=== PATIENT | female | born 1970 | race Caucasian/White ===

== ENCOUNTER 2017-11-01 07:35 | Day surgery (SDC) | payer OTHER ==
[~2017-11-01 07:35] MED LIST: PROPOFOL INJ 200 MG/20 ML VIAL IV ONE
[2017-11-01] MEDS ORDERED: PROPOFOL INJ 200 MG/20 ML VIAL IV ONE (08:59)
[2017-11-01 09:35] VITALS: BP 122/77
--- NOTE | 2017-11-01 12:27 | Operative Report ---
Operative Report DATE OF SURGERY: 11/01/17 Operative Report: The risks, benefits and alternatives of the procedure including risks of bleeding, perforation requiring surgery are explained to the patient in detail and informed consent is obtained. Patient is taken back to the endoscopy suite and placed in the left, lateral decubital position. Timeout was called. Propofol medications administered. A rectal examination is done which did not reveal any masses, tears or fissures. An Olympus videoscope was inserted into the patient's rectum. The scope was then carefully advanced all the way to the cecum. The cecum was identified by the usual anatomical landmarks including the ileocecal valve as well as the appendiceal office. Photodocumentation was obtained. The scope was then sequentially pulled back via the rest segments of the colon including the ascending colon, hepatic flexure, transverse colon, splenic flexure, descending colon and finding to the rectosigmoid portions of the colon. Prep is reasonably good. Intubation of the terminal ileum is done. PREOPERATIVE DIAGNOSIS: Right lower quadrant pain, change in bowel habits POSTOPERATIVE DIAGNOSIS: Mild terminal ileitis status post biopsy rule out Crohn 's disease. Right sidecolon Inflammation status post biopsy rule out lymphocytic, collagenous colitis. Internal hemorrhoids OPERATION: Colonoscopy with biopsy SURGEON: LILLIE BRIDGES ANESTHESIA: LMAC TISSUE REMOVED OR ALTERED: As noted above. COMPLICATIONS: None. ESTIMATED BLOOD LOSS: None. INTRAOPERATIVE FINDINGS: As noted above. PROCEDURE: Patient tolerated procedure well. No immediate postprocedure complications are noted. Patient discharged in good condition. Discharge date 11/01/2017. Discharge diet: Regular. Discharge activity: Regular. 2-3 week follow-up to discuss findings. Patient is instructed to call the office or proceed to the emergency room should there be any further problems or questions. We will wait on pathology.
== END 2017-11-01 09:30 | disposition home or self-care (01) ==
LOC: END 07:35
PROVIDERS: ATTEND Internal Medicine Gastroenterology
PROC: 0DBF8ZX Excision of Right Large Intestine, Via Natural or Artificial Opening Endoscopic, Diagnostic (ICD-10-PCS; 2017-11-01)
PROC: 0DBB8ZX Excision of Ileum, Via Natural or Artificial Opening Endoscopic, Diagnostic (ICD-10-PCS; principal; 2017-11-01 09:00)
DX: K92.1 Melena (principal); K52.9 Noninfective gastroenteritis and colitis, unspecified; K64.8 Other hemorrhoids; J45.909 Unspecified asthma, uncomplicated; K44.9 Diaphragmatic hernia without obstruction or gangrene; Z96.659 Presence of unspecified artificial knee joint; Z79.899 Other long term (current) drug therapy
CPT/HCPCS: 45380; 88305 ×2; J2704; 811

== ENCOUNTER 2018-02-17 04:08 | Emergency (ER) | payer OTHER ==
[2018-02-17 05:24] LABS: ANION GAP 12 (5-19); BLOOD UREA NITROGEN 20 mg/dL (7-20); CALCIUM 7.3 mg/dL (8.4-10.2); CARBON DIOXIDE 32 mmol/L (22-30); CHLORIDE 98 mmol/L (98-107); GLUCOSE 98 mg/dL (75-110); POTASSIUM 4.3 mmol/L (3.6-5.0)
[2018-02-17 06:27] LABS: ALANINE AMINOTRANSFERASE 28 U/L (9-52); ALBUMIN 3.5 g/dL (3.5-5.0); ALKALINE PHOSPHATASE 77 U/L (38-126); ASPARTATE AMINO TRANSFERASE 24 U/L (14-36); BILIRUBIN,DIRECT 0.3 mg/dL (0.0-0.4); BILIRUBIN,TOTAL 0.4 mg/dL (0.2-1.3); TOTAL PROTEIN 6.7 g/dL (6.3-8.2)
[2018-02-17] MEDS ORDERED: CALCIUM GLUCONATE 1000 MG/10 ML INJ IV ONE ×2 (06:46→07:15)
--- NOTE | 2018-02-17 06:57 | ER Document Report ---
ED General - General Chief Complaint: Numbness Stated Complaint: TINGLING IN HANDS/LIPS Time Seen by Provider: 02/17/18 04:44 Mode of Arrival: Ambulatory Information source: Patient Notes: 47-year-old female patient has 2 days post total thyroidectomy presents with complaint of numbness to her bilateral hands and fingertips as well as numbness around her lips. Patient reports that she believes her calcium is low as her surgeon Dr. Castro told her this was a sign to watch for. Patient states she woke up with these symptoms at about 3 AM this morning. Patient reports that while she was in the hospital she was treated with IV calcium for a similar episode. Patient denies any other symptoms. TRAVEL OUTSIDE OF THE [place] IN LAST 30 DAYS: No - Related Data Allergies/Adverse Reactions: shrimp Allergy (Severe, Verified 02/17/18 08:11) Swelling of mouth with large amounts Sulfa (Sulfonamide Antibiotics) Allergy (Severe, Verified 02/17/18 08:11) Blisters in mouth Tuna Allergy (Severe, Uncoded 02/17/18 08:11) N&V Past Medical History - General Information source: Patient - Social History Smoking Status: Never Smoker Chew tobacco use (# tins/day): No Frequency of alcohol use: None Drug Abuse: None Family History: Reviewed & Not Pertinent, CVA Patient has suicidal ideation: No Patient has homicidal ideation: No - Past Medical History Cardiac Medical History: Reports: Hx Hypertension Denies: Hx Coronary Artery Disease, Hx Heart Attack Pulmonary Medical History: Reports: Hx Asthma - No attacks in yrs, Hx Pneumonia - 10/2015 Denies: Hx Bronchitis, Hx COPD Neurological Medical History: Denies: Hx Cerebrovascular Accident, Hx Seizures Renal/ Medical History: Denies: Hx Peritoneal Dialysis Musculoskeltal Medical History: Reports Hx Arthritis - Lt shoulder, Lt elbow Psychiatric Medical History: Reports: Hx Anxiety, Hx Post Traumatic Stress Disorder Past Surgical History: Reports: Hx Abdominal Surgery - exp lap., Hx Section, Hx Hysterectomy, Hx Orthopedic Surgery - knee, foot, Hx Thyroid Surgery - Immunizations Hx Diphtheria, Pertussis, Tetanus Vaccination: Yes - 2012 Review of Systems - Review of Systems Constitutional: See HPI EENT: No symptoms reported Cardiovascular: No symptoms reported Respiratory: No symptoms reported Gastrointestinal: No symptoms reported Genitourinary: No symptoms reported Female Genitourinary: No symptoms reported Musculoskeletal: No symptoms reported Skin: No symptoms reported Hematologic/Lymphatic: No symptoms reported Neurological/Psychological: No symptoms reported Physical Exam - Vital signs Vitals: Temp Pulse Resp BP Pulse Ox 98.8 F 65 22 H 137/81 H 95 02/17/18 04:13 02/17/18 04:13 02/17/18 04:13 02/17/18 04:13 02/17/18 04:13 - Notes Notes: PHYSICAL EXAMINATION: GENERAL: Well-appearing, well-nourished and in no acute distress. HEAD: Atraumatic, normocephalic. EYES: Pupils equal round and reactive to light, extraocular movements intact, conjunctiva are normal. ENT: Nares patent, oropharynx clear without exudates. Moist mucous membranes. Healing surgical incision across the patient's lower neck consistent with recent thyroid surgery (Steri-Strips in place). NECK: Normal range of motion, supple without lymphadenopathy LUNGS: Breath sounds clear to auscultation bilaterally and equal. No wheezes rales or rhonchi. HEART: Regular rate and rhythm without murmurs ABDOMEN: Soft, nontender, nondistended abdomen. No guarding, no rebound. No masses appreciated. Female : deferred Musculoskeletal: Normal range of motion, no pitting or edema. No cyanosis. NEUROLOGICAL: Cranial nerves grossly intact. Normal speech, normal gait. Normal sensory, motor exams PSYCH: Normal mood, normal affect. SKIN: Warm, Dry, normal turgor, no rashes or lesions noted. Course - Re-evaluation Re-evalutation: Patient is to days post total thyroidectomy. Patient has symptoms consistent with hypocalcemia and no other complaints. Patient's calcium level 7.3, albumin 3.5. Will replace patient with 2000 mg calcium gluconate IV and will consult patient's surgeon at [facility], Dr. Castro. Spoke with Dr. Castro, patients surgeon who recommends to give patient another 2 grams of calcium gluconate IV prior to discharge. He would also like patient to increase her calcium 1 g tablets two 4 times daily and increase her Calcitrol 0.5 mcg tablets to 3 times daily. - Vital Signs Vital signs: Temp Pulse Resp BP Pulse Ox 98.5 F 64 18 124/73 94 02/17/18 09:12 02/17/18 09:12 02/17/18 09:12 02/17/18 09:12 02/17/18 09:12 - Laboratory Result Diagrams: 02/17/18 05:00 Laboratory results interpreted by me: 02/17/18 05:00 Carbon Dioxide 32 H Calcium 7.3 L Discharge - Discharge Clinical Impression: Hypocalcemia Condition: Stable Disposition: HOME, SELF-CARE Additional Instructions: Per the recommendations of Dr. Castro. please increase your Calcitrol from twice a day to 3 times per day. Please increase your calcium from 1 gram 3 times daily to 1 gram 4 times per day. Please keep your follow-up appointment tomorrow with Dr. Castro. Referrals: JACEY ARMENDARIZ PA-C [Primary Care Provider] - Follow up as needed LOGAN AN MD [NO LOCAL MD] - Follow up as needed
[2018-02-17 09:16] VITALS: BP 124/73
== END 2018-02-17 09:30 | disposition home or self-care (01) ==
LOC: ER 04:08
DX: E83.51 Hypocalcemia (principal); R20.0 Anesthesia of skin; E89.0 Postprocedural hypothyroidism; Z91.013 Allergy to seafood; Z88.2 Allergy status to sulfonamides; I10 Essential (primary) hypertension; J45.909 Unspecified asthma, uncomplicated
CPT/HCPCS: 99284; 96365; 36415; 84703; 80076; 80048; J0610

== ENCOUNTER 2018-02-18 04:53 | Inpatient (IN) | payer OTHER ==
[2018-02-18] MEDS ORDERED: ONDANSETRON HCL INJ/PF 4 MG/2 ML SDV IV ONE (05:35)
--- NOTE | 2018-02-18 05:35 | ER Document Report ---
ED Medical Screen (RME) - General Chief Complaint: Diarrhea Stated Complaint: diarrhea Time Seen by Provider: 02/18/18 05:30 Notes: 47-year-old female, states that she is status post thyroidectomy 3 days ago at [facility] by Dr. Castro, states that she was seen yesterday and given calcium , she states that she was increased on her calcium dose, she states she was feeling fine until she woke up at about 2 AM, felt like she was tingling over her face and arms, she then had to episodes of loose stools and felt nauseated, she states at that point she decided to come in. She states she feels nauseated at this time. She denies vomiting, abdominal pain, chest pain, shortness of breath, dizziness, fever. She was supposed to see her surgeon in followup today in the office. TRAVEL OUTSIDE OF THE [place] IN LAST 30 DAYS: No - Related Data Allergies/Adverse Reactions: shrimp Allergy (Severe, Verified 02/17/18 08:11) Swelling of mouth with large amounts Sulfa (Sulfonamide Antibiotics) Allergy (Severe, Verified 02/17/18 08:11) Blisters in mouth Tuna Allergy (Severe, Uncoded 02/17/18 08:11) N&V Past Medical History - Past Medical History Cardiac Medical History: Reports: Hx Hypertension Denies: Hx Coronary Artery Disease, Hx Heart Attack Pulmonary Medical History: Reports: Hx Asthma - No attacks in yrs, Hx Pneumonia - 10/2015 Denies: Hx Bronchitis, Hx COPD Neurological Medical History: Denies: Hx Cerebrovascular Accident, Hx Seizures Renal/ Medical History: Denies: Hx Peritoneal Dialysis Musculoskeltal Medical History: Reports Hx Arthritis - Lt shoulder, Lt elbow Psychiatric Medical History: Reports: Hx Anxiety, Hx Post Traumatic Stress Disorder Past Surgical History: Reports: Hx Abdominal Surgery - exp lap., Hx Section, Hx Hysterectomy, Hx Orthopedic Surgery - knee, foot, Hx Thyroid Surgery - Immunizations Hx Diphtheria, Pertussis, Tetanus Vaccination: Yes - 2012 Influenza Administration Date for 06/2017 - 11/2017 Season: 10/07/16 Physical Exam - Vital signs Vitals: Temp Pulse Resp BP Pulse Ox 98.1 F 69 20 146/82 H 97 02/18/18 04:59 02/18/18 04:59 02/18/18 04:59 02/18/18 04:59 02/18/18 04:59 - Cardiovascular Rhythm: Regular. No: Irregularly irregular, Extrasystoles, Tachycardia Heart sounds: Normal auscultation, S1 appreciated, S2 appreciated Murmur: No Normal capillary refill: Yes - Abdominal Inspection: Normal Tenderness: Nontender. No: Tender Course - Re-evaluation Re-evalutation: I have greeted and performed a rapid initial assessment of this patient. A comprehensive ED assessment and evaluation of the patient, analysis of test results and completion of the medical decision making process will be conducted by additional ED providers. - Vital Signs Vital signs: Temp Pulse Resp BP Pulse Ox 98.1 F 69 20 146/82 H 97 02/18/18 04:59 02/18/18 04:59 02/18/18 04:59 02/18/18 04:59 02/18/18 04:59 Doctor's Discharge - Discharge Referrals: JACEY ARMENDARIZ PA-C [Primary Care Provider] - Follow up as needed
[2018-02-18 06:22] LABS: ABSOLUTE EOSINOPHILS # (AUTO) 0.1 10^3/uL (0.0-0.6); ABSOLUTE LYMPHOCYTES (AUTO) 0.9 10^3/uL (0.5-4.7); ABSOLUTE MONOCYTES (AUTO) 0.6 10^3/uL (0.1-1.4); ABSOLUTE NEUT (AUTO) 7.9 10^3/uL (1.7-8.2); BASOPHILS % (AUTO) 0.4 % (0-2); EOSINOPHILS % (AUTO) 1.1 % (0-6); HEMATOCRIT 36.3 % (36.0-47.0); HEMOGLOBIN 12.1 g/dL (12.0-15.5); LYMPHOCYTES % (AUTO) 9.9 % (13-45); MEAN CORPUSCULAR HEMOGLOBIN 27.1 pg (27.0-33.4); MEAN CORPUSCULAR HGB CONC 33.5 g/dL (32.0-36.0); MEAN CORPUSCULAR VOLUME 81 fl (80-97); MONOCYTES % (AUTO) 6.6 % (3-13); PLATELET COUNT 274 10^3/uL (150-450); RED BLOOD COUNT 4.48 10^6/uL (3.72-5.28); RED CELL DISTRIBUTION WIDTH 16.6 % (11.5-14.0); TOTAL CELLS COUNTED % (AUTO) 100 %; WHITE BLOOD COUNT 9.6 10^3/uL (4.0-10.5)
[2018-02-18] MEDS ORDERED: ONDANSETRON 4 MG TAB.RAPDIS PO ONE (06:26)
--- NOTE | 2018-02-18 06:30 | ER Document Report ---
ED General - General Information source: Patient TRAVEL OUTSIDE OF THE [place] IN LAST 30 DAYS: No <RONY NIETO - Last Filed: 02/18/18 08:16> <TESSA RAYGOZA - Last Filed: 02/18/18 16:53> - General Chief Complaint: Diarrhea Stated Complaint: diarrhea Time Seen by Provider: 02/18/18 05:30 Notes: 47 y.o female presents to the ED with tingling in her face that she describes as "pins and needles". Patient reports recently having her thyroid removed on Feb [address] Johnson in [place] due to a large, benign goiter on her thyroid pressing against her throat. Pt states that "a parathyroid popped out and was put back in during surgery". Pt was seen earlier in the ED and was given Calcium supplements from which she felt some relief. Pt reports that after going home she had continued to have diarrhea, nausea and the tingling continued to worsen. She also reports cramping in her bilateral lower extremities but denies any cramping to fingers or toes. Pt reports that she hasn 't had a BM since leaving her house to come here this morning. Pt denies any vomiting. Pt reports taking calcium and vitamin D (Calcitriol) at home but denies taking any Magnesium. She also reports taking thyroid medication at home which is a new medication since her surgery. (RONY NIETO) - Related Data Allergies/Adverse Reactions: shrimp Allergy (Severe, Verified 02/17/18 08:11) Swelling of mouth with large amounts Sulfa (Sulfonamide Antibiotics) Allergy (Severe, Verified 02/17/18 08:11) Blisters in mouth Tuna Allergy (Severe, Uncoded 02/17/18 08:11) N&V Past Medical History - General Information source: Patient - Social History Smoking Status: Never Smoker Cigarette use (# per day): No Chew tobacco use (# tins/day): No Smoking Education Provided: No Frequency of alcohol use: None Drug Abuse: None Family History: Reviewed & Not Pertinent, CVA - Past Medical History Cardiac Medical History: Reports: Hx Hypertension Pulmonary Medical History: Reports: Hx Asthma - No attacks in yrs, Hx Pneumonia - 10/2015 Renal/ Medical History: Denies: Hx Peritoneal Dialysis Musculoskeltal Medical History: Reports Hx Arthritis - Lt shoulder, Lt elbow Psychiatric Medical History: Reports: Hx Anxiety, Hx Post Traumatic Stress Disorder Past Surgical History: Reports: Hx Abdominal Surgery - exp lap., Hx Section, Hx Hysterectomy, Hx Orthopedic Surgery - knee, foot, Hx Thyroid Surgery - Immunizations Hx Diphtheria, Pertussis, Tetanus Vaccination: Yes - 2012 <RONY NIETO - Last Filed: 02/18/18 08:16> Review of Systems - Review of Systems Constitutional: No symptoms reported EENT: No symptoms reported Cardiovascular: No symptoms reported Respiratory: No symptoms reported Gastrointestinal: See HPI, Diarrhea, Nausea. denies: Vomiting Genitourinary: No symptoms reported Female Genitourinary: No symptoms reported Musculoskeletal: See HPI, Other - Cramping to bilat lower extremities Skin: No symptoms reported Hematologic/Lymphatic: No symptoms reported Neurological/Psychological: Tingling - to face -: Yes All other systems reviewed and negative <RONY NIETO - Last Filed: 02/18/18 08:16> Physical Exam <RONY NIETO - Last Filed: 02/18/18 08:16> <TESSA RAYGOZA - Last Filed: 02/18/18 16:53> - Vital signs Vitals: Temp Pulse Resp BP Pulse Ox 98.1 F 69 20 146/82 H 97 02/18/18 04:59 02/18/18 04:59 02/18/18 04:59 02/18/18 04:59 02/18/18 04:59 - Notes Notes: PHYSICAL EXAM GENERAL: Alert and anxious. Negative [place] sign. HEAD: Normocephalic, atraumatic. EYES: Pupils equal, round, and reactive to light. Extraocular movements intact. ENT: Oral mucosa moist, tongue midline. NECK: Full range of motion. Supple. Trachea midline. Well approximated and well healing surgical scar from thyroid surgery on 02/15/18. LUNGS: Clear to auscultation bilaterally, no wheezes, rales, or rhonchi. No respiratory distress. HEART: Regular rate and rhythm. No murmurs, gallops, or rubs. ABDOMEN: Obese. Soft, non-tender. Bowel sounds present in all 4 quadrants. No guarding, rebound, or rigidity. EXTREMITIES: Moves all 4 extremities spontaneously. No edema, radial and dorsalis pedis pulses 2/4 bilaterally. No cyanosis. NEUROLOGICAL: Alert and oriented x3. Normal speech. Biceps and patellar DTRs 2+ bilaterally. PSYCH: Normal affect, normal mood. SKIN: Warm, dry, normal turgor. No rashes or lesions noted. (RONY NIETO) Course - Laboratory Result Diagrams: 02/18/18 06:15 02/18/18 06:40 <RONY NIETO - Last Filed: 02/18/18 08:16> - Laboratory Result Diagrams: 02/18/18 06:15 02/18/18 06:40 <TESSA RAYGOZA - Last Filed: 02/18/18 16:53> - Re-evaluation Re-evalutation: 02/18/18 08:19 Patient is given 1 g of calcium gluconate IV, states that she is feeling a little bit better but still has some pins and needles and some cramping. Patient will be given a second gram of calcium gluconate IV. I do have a phone call out to Dr. Johnson . At [facility] for further consultation. Currently patient is taking Tums 4 tablets 3 times a day, this was recently increased yesterday from 2 tablets 3 times a day. She also takes Synthroid 0.125 mg daily and Calcitrol 0.5 mg twice a day. Magnesium is normal and ionized calcium is being drawn now.EKG does not have any QT prolongation. 02/18/18 08:[address] Johnson from [facility], he stated that the patient should have been increased to 0.5 mcg of calcitriol 3 times a day yesterday, I did confirm with the patient that she has increased to this dose, he also stated that she should have been increased to 1 g of calcium 4 times a day yesterday and she confirmed that she has done this as well. He recommends giving the patient 4 g of IV calcium gluconate here and then recheck her calcium, if it is not normal then give her 4 more grams here. So long as her calcium normalizes we should increase her calcitriol to 1 mcg 3 times a day and continue her calcium at 1 g 4 times a day with meals. He states that if after discharge she still does not have any improvement on the increased outpatient regimen she will likely need to return to be admitted. Patient is aware of this plan and is aware that she will likely be here for several more hours. 02/18/18 14:22 Patient symptoms are improving however repeat calcium is only 7.6. This means she will need another 4 g of IV calcium gluconate and then we will recheck her calcium 1 hour after this is finished infusing. Patient is taking her Calcitrol 1 mcg by mouth from home at bedside. She is already taking her home levothyroxine as well. 02/18/18 16:52 Patient has been signed out to Dr. Ledbetter. He will follow-up on her repeat calcium level. If it is normal she will be discharged to home with the changes recommended by Dr. Johnson which are already in the discharge instructions. Patient is aware of the change in provider as well. (TESSA RAYGOZA) - Vital Signs Vital signs: Temp Pulse Resp BP Pulse Ox 98.1 F 69 20 145/79 H 96 02/18/18 04:59 02/18/18 04:59 02/18/18 12:01 02/18/18 12:01 02/18/18 12:01 - Laboratory Laboratory results interpreted by me: 02/18/18 02/18/18 02/18/18 06:15 06:40 08:20 RDW 16.6 H Seg Neutrophils % 82.0 H Lymphocytes % 9.9 L Carbon Dioxide 32 H Calcium 6.9 L* Ionized Calcium Aaron 0.85 L 02/18/18 13:42 RDW Seg Neutrophils % Lymphocytes % Carbon Dioxide Calcium 7.6 L Ionized Calcium Aaron Discharge <RONY NIETO - Last Filed: 02/18/18 08:16> <TESSA RAYGOZA - Last Filed: 02/18/18 16:53> - Discharge Clinical Impression: Hypocalcemia Additional Instructions: Today we gave you a total of 8 g of calcium gluconate. We spoke with Dr. Johnson who asked us to adjust your medications as follows: please take your calcitriol 1 mcg 3 times a day. Please take your calcium (Tums) 1 g 4 times a day with meals. Continue taking her levothyroxine as prescribed. If your symptoms of tingling around the face and cramping in your extremities continue please return to the emergency department, if we find your calcium to be low again you will likely need to be admitted. Referrals: JACEY ARMENDARIZ PA-C [Primary Care Provider] - Follow up as needed Scribe Attestation: 02/18/18 16:52 I personally performed the services described in the documentation, reviewed and edited the documentation which was dictated to the scribe in my presence, and it accurately records my words and actions. (TESSA RAYGOZA) Scribe Documentation - Scribe Written by Juliusibchirag:: Griselda Mahajan [id number] 02/18/18 acting as scribe for :: Maxwell <RONY NIETO - Last Filed: 02/18/18 08:16>
[2018-02-18] MEDS ORDERED: CALCIUM GLUCONATE 1000 MG/10 ML INJ IV ONE ×4 (06:33→14:16)
[2018-02-18 07:17] LABS: ALANINE AMINOTRANSFERASE 39 U/L (9-52); ALBUMIN 3.7 g/dL (3.5-5.0); ALKALINE PHOSPHATASE 88 U/L (38-126); ANION GAP 13 (5-19); ASPARTATE AMINO TRANSFERASE 28 U/L (14-36); BILIRUBIN,DIRECT 0.3 mg/dL (0.0-0.4); BILIRUBIN,TOTAL 0.5 mg/dL (0.2-1.3); BLOOD UREA NITROGEN 15 mg/dL (7-20); CARBON DIOXIDE 32 mmol/L (22-30); CHLORIDE 100 mmol/L (98-107); GLUCOSE 110 mg/dL (75-110); POTASSIUM 4.1 mmol/L (3.6-5.0); SODIUM 144.6 mmol/L (137-145); TOTAL PROTEIN 6.9 g/dL (6.3-8.2)
--- NOTE | 2018-02-18 07:18 | EKG REPORT ---
SEVERITY:- NORMAL ECG - SINUS RHYTHM : Confirmed by: Carlos Hobbs MD 18-Feb-2018 07:18:11
[2018-02-18 07:29] LABS: CALCIUM 6.9 mg/dL (8.4-10.2)
[2018-02-18] MEDS ORDERED: ALBUTEROL SULFATE 0.083% NEB 2.5 MG/3 ML AMPUL NEB PRN (17:29)
[2018-02-18] MEDS ORDERED: CALCITRIOL 0.25 MCG CAPSULE PO SCH (18:00)
[2018-02-18] MEDS ORDERED: CALCIUM CARBONATE 500 MG TAB.CHEW PO SCH (18:00)
[2018-02-18] MEDS: CALCITRIOL 0.25 MCG CAPSULE PO SCH (18:12)
[2018-02-18] MEDS: CALCIUM CARBONATE 500 MG TAB.CHEW PO SCH ×2 (18:13→21:44)
[2018-02-18] MEDS: ACETAMINOPHEN 325 MG TABLET PO PRN (18:26)
--- NOTE | 2018-02-18 18:51 | PDOC H&P ---
History of Present Illness Admission Date/PCP: 02/18/18 18:11 JACEY ARMENDARIZ PA-C Patient complains of: Diarrhea and facial tingling History of Present Illness: MILAN ODOM is a 47 year old female who had a total thyroidectomy on February 15 for a goiter. This is her second presentation to the ER for tingling in her face and cramping in her legs. She states she continues to have diarrhea , though she has not had any in the 12 hour she has been here in the ER. She states she has been taking her calcium, calcitriol, and thyroxine as prescribed. She was found to be notably hypocalcemic. The ER has continued to treat her with IV calcium over the past 12 hours and it still has not normalized , but she states her symptoms have improved. Past Medical History Cardiac Medical History: Reports: Hypertension Denies: Coronary Artery Disease, Myocardial Infarction Pulmonary Medical History: Reports: Asthma - No attacks in yrs, Pneumonia - 2015 Denies: Bronchitis, Chronic Obstructive Pulmonary Disease (COPD) Neurological Medical History: Denies: Seizures Endocrine Medical History: Reports: Hypothyroidism, Other Musculoskeltal Medical History: Reports: Arthritis - Lt shoulder, Lt elbow Psychiatric Medical History: Reports: Post Traumatic Stress Disorder Hematology: Denies: Anemia Past Surgical History Past Surgical History: Reports: Section, Hysterectomy, Orthopedic Surgery - knee, foot, Thyroidectomy Social History Information Source: Patient Smoking Status: Never Smoker Frequency of Alcohol Use: None Hx Recreational Drug Use: No - Advance Directive Resuscitation Status: Full Code Family History Family History: CVA Parental Family History Reviewed: Yes Children Family History Reviewed: No Sibling(s) Family History Reviewed.: No Medication/Allergy Allergies/Adverse Reactions: shrimp Allergy (Severe, Verified 02/17/18 08:11) Swelling of mouth with large amounts Sulfa (Sulfonamide Antibiotics) Allergy (Severe, Verified 02/17/18 08:11) Blisters in mouth Tuna Allergy (Severe, Uncoded 02/17/18 08:11) N&V Review of Systems All systems: reviewed and no additional remarkable complaints except as stated Physical Exam Vital Signs: Temp Pulse Resp BP Pulse Ox 98.1 F 69 23 H 154/72 H 97 02/18/18 04:59 02/18/18 04:59 02/18/18 17:00 02/18/18 14:01 05/25/18 17:00 General appearance: PRESENT: cooperative, mild distress, morbidly obese Neck exam: PRESENT: other - She has a scar on her anterior neck consistent with a recent thyroidectomy without evidence of infection. Respiratory exam: PRESENT: clear to auscultation sharyn Cardiovascular exam: PRESENT: RRR GI/Abdominal exam: PRESENT: soft Neurological exam: PRESENT: alert Psychiatric exam: PRESENT: anxious Skin exam: PRESENT: dry, warm Assessment & Plan - Diagnosis (1) Hypocalcemia Is this a current diagnosis for this admission?: Yes Plan: Continue the calcium that is been started in the ER and recheck in the morning. I will put her back on her recommended calcium and calcitriol dose and monitor closely (2) Hypoparathyroidism after procedure Is this a current diagnosis for this admission?: Yes (3) Hypothyroidism (acquired) Is this a current diagnosis for this admission?: Yes Plan: Resume home dose of Synthroid. (4) Morbid obesity with BMI of 50.0-59.9, adult Is this a current diagnosis for this admission?: Yes
[2018-02-18] MEDS ORDERED: FAMOTIDINE 20 MG TABLET PO SCH (22:00)
[2018-02-18] MEDS: HYDROCODONE/ACETAMINOPHEN 5-325 MG TABLET PO PRN (23:33)
[2018-02-19] MEDS: ACETAMINOPHEN 325 MG TABLET PO PRN (06:46)
[2018-02-19 06:52] LABS: ALBUMIN 3.4 g/dL (3.5-5.0); ANION GAP 11 (5-19); BLOOD UREA NITROGEN 12 mg/dL (7-20); CALCIUM 7.9 mg/dL (8.4-10.2); CARBON DIOXIDE 34 mmol/L (22-30); CHLORIDE 99 mmol/L (98-107); GLUCOSE 100 mg/dL (75-110); PHOSPHORUS 7.3 mg/dL (2.5-4.5); POTASSIUM 3.9 mmol/L (3.6-5.0); SODIUM 143.8 mmol/L (137-145)
[2018-02-19 06:58] LABS: FREE T3 2.33 pg/mL (2.77-5.27); FREE T4 (FREE THYROXINE) 1.16 ng/dL (0.78-2.19)
[2018-02-19 07:12] LABS: THYROID STIMULATING HORMONE 14.9 uIU/mL (0.47-4.68)
[2018-02-19] MEDS ORDERED: (PENDING PHARMACY ID) (Levothyroxine Sodium [Synthroid] 250 MCG) PO SCH (08:45)
[2018-02-19] MEDS: CALCIUM CARBONATE 500 MG TAB.CHEW PO SCH ×4 (09:30→22:16)
[2018-02-19] MEDS: ESCITALOPRAM OXALATE 10 MG TABLET PO SCH (09:30)
[2018-02-19] MEDS: CALCITRIOL 0.25 MCG CAPSULE PO SCH ×3 (09:30→17:37)
[2018-02-19] MEDS: ATENOLOL 50 MG TABLET PO SCH (09:30)
[2018-02-19] MEDS: ENOXAPARIN SODIUM INJ 40 MG/0.4 ML DISP.SYRIN SUBCUT SCH (09:31)
[2018-02-19] MEDS: LANSOPRAZOLE 30 MG TAB.RAP.DR PO SCH (09:31)
[2018-02-19] MEDS ORDERED: LEVOTHYROXINE SODIUM 0.15 MG TABLET PO SCH (10:00)
[2018-02-19] MEDS ORDERED: (PENDING PHARMACY ID) (Omeprazole Magnesium [Prilosec Otc] 40 MG) PO SCH (10:00)
[2018-02-19] MEDS ORDERED: LEVOTHYROXINE SODIUM 0.1 MG TABLET PO SCH (10:00)
--- NOTE | 2018-02-19 13:54 | PDOC PROGRESS REPORT ---
Subjective Progress Note for:: 02/19/18 Subjective:: Standing in the middle the room crying. States her motions are all over the place, and there is nothing in particular wrong. Reason For Visit: SYMPTOMATIC HYPOCALCEMIA,HYPOPARATHYROIDSM Physical Exam Vital Signs: Temp Pulse Resp BP Pulse Ox 98.3 F 77 12 140/83 H 98 02/19/18 08:21 02/19/18 08:21 02/19/18 08:21 02/19/18 08:21 02/19/18 08:21 Intake & Output 02/18/18 02/19/18 02/20/18 05:59 05:59 05:59 Intake Total 12 Balance 12 Weight 323 lb 10.217 oz General appearance: PRESENT: mild distress, morbidly obese Throat exam: PRESENT: other - Incision from recent thyroidectomy that looks to be healing well Respiratory exam: PRESENT: clear to auscultation sharyn Cardiovascular exam: PRESENT: RRR GI/Abdominal exam: PRESENT: soft Extremities exam: ABSENT: pedal edema Neurological exam: PRESENT: alert Psychiatric exam: ABSENT: appropriate affect, normal mood Skin exam: PRESENT: warm Results Laboratory Results: 02/19/18 04:58 02/18/18 02/19/18 02/19/18 20:22 04:38 04:58 Sodium Potassium Chloride Carbon Dioxide Anion Gap BUN Creatinine Est GFR ( Amer) Est GFR (Non-Af Amer) Glucose Calcium 8.3 L Phosphorus Magnesium Albumin TSH 14.90 H Free T4 1.16 Free T3 pg/mL 2.33 L PTH Intact < 3.4 L 02/19/18 04:58 Sodium 143.8 Potassium 3.9 Chloride 99 Carbon Dioxide 34 H Anion Gap 11 BUN 12 Creatinine 0.79 Est GFR ( Amer) > 60 Est GFR (Non-Af Amer) > 60 Glucose 100 Calcium 7.9 L Phosphorus 7.3 H Magnesium 1.8 Albumin 3.4 L TSH Free T4 Free T3 pg/mL PTH Intact Assessment & Plan - Diagnosis (1) Hypocalcemia Is this a current diagnosis for this admission?: Yes Plan: Her calcium is normal the day after adjusting for albumin. Continue her home medications and recheck in the morning. (2) Hypoparathyroidism after procedure Is this a current diagnosis for this admission?: Yes (3) Hypothyroidism (acquired) Is this a current diagnosis for this admission?: Yes Plan: Resume home dose of Synthroid. (4) Morbid obesity with BMI of 50.0-59.9, adult Is this a current diagnosis for this admission?: Yes
[2018-02-19] MEDS: HYDROCODONE/ACETAMINOPHEN 5-325 MG TABLET PO PRN (19:38)
[2018-02-20 06:27] LABS: ALBUMIN 3.5 g/dL (3.5-5.0); ANION GAP 13 (5-19); BLOOD UREA NITROGEN 17 mg/dL (7-20); CALCIUM 7.6 mg/dL (8.4-10.2); CARBON DIOXIDE 30 mmol/L (22-30); CHLORIDE 101 mmol/L (98-107); GLUCOSE 94 mg/dL (75-110); PHOSPHORUS 6.4 mg/dL (2.5-4.5); POTASSIUM 4.1 mmol/L (3.6-5.0); SODIUM 143.8 mmol/L (137-145)
[2018-02-20] MEDS: LEVOTHYROXINE SODIUM 0.1 MG TABLET PO SCH (07:13)
[2018-02-20] MEDS: LEVOTHYROXINE SODIUM 0.15 MG TABLET PO SCH (07:13)
[2018-02-20] MEDS ORDERED: CALCIUM GLUCONATE 6,666 MG in DEXTROSE 5%-WATER 500 ML IV ONE (09:00)
[2018-02-20] MEDS: ASCORBIC ACID 500 MG TABLET PO SCH ×4 (09:17→21:59)
[2018-02-20] MEDS: CALCIUM CARBONATE 500 MG TAB.CHEW PO SCH ×4 (09:17→21:59)
[2018-02-20] MEDS: CALCITRIOL 0.25 MCG CAPSULE PO SCH ×3 (09:17→17:49)
[2018-02-20] MEDS: LANSOPRAZOLE 30 MG TAB.RAP.DR PO SCH (09:17)
[2018-02-20] MEDS: ATENOLOL 50 MG TABLET PO SCH (09:17)
[2018-02-20] MEDS: ESCITALOPRAM OXALATE 10 MG TABLET PO SCH (09:17)
[2018-02-20] MEDS: ENOXAPARIN SODIUM INJ 40 MG/0.4 ML DISP.SYRIN SUBCUT SCH (09:18)
--- NOTE | 2018-02-20 12:59 | PDOC PROGRESS REPORT ---
Subjective Progress Note for:: 02/20/18 Subjective:: Lying in bed. Still emotionally labile. No current complaints. Reason For Visit: SYMPTOMATIC HYPOCALCEMIA,HYPOPARATHYROIDSM Physical Exam Vital Signs: Temp Pulse Resp BP Pulse Ox 98.8 F 62 16 132/78 H 98 02/20/18 11:18 02/20/18 11:18 02/20/18 11:18 02/20/18 11:18 02/20/18 11:18 Intake & Output 02/19/18 02/20/18 02/21/18 05:59 05:59 05:59 Intake Total 964 Balance 964 Weight 323 lb 10.217 oz 320 lb 1.779 oz General appearance: PRESENT: no acute distress, morbidly obese Respiratory exam: PRESENT: clear to auscultation sharyn Cardiovascular exam: PRESENT: RRR GI/Abdominal exam: PRESENT: soft Neurological exam: PRESENT: alert Psychiatric exam: PRESENT: anxious Skin exam: PRESENT: warm, other - Healing next lesion from thyroidectomy Results Laboratory Results: 02/20/18 04:36 02/20/18 04:36 Sodium 143.8 Potassium 4.1 Chloride 101 Carbon Dioxide 30 Anion Gap 13 BUN 17 Creatinine 0.81 Est GFR ( Amer) > 60 Est GFR (Non-Af Amer) > 60 Glucose 94 Calcium 7.6 L Phosphorus 6.4 H Magnesium 1.9 Albumin 3.5 Assessment & Plan - Diagnosis (1) Hypocalcemia Is this a current diagnosis for this admission?: Yes Plan: Drop back down overnight. I will give her another 4 g of calcium gluconate, and recheck in the morning. (2) Hypoparathyroidism after procedure Is this a current diagnosis for this admission?: Yes (3) Hypothyroidism (acquired) Is this a current diagnosis for this admission?: Yes Plan: Resume home dose of Synthroid. (4) Morbid obesity with BMI of 50.0-59.9, adult Is this a current diagnosis for this admission?: Yes
[2018-02-20] MEDS: HYDROCODONE/ACETAMINOPHEN 5-325 MG TABLET PO PRN (20:23)
[2018-02-21 06:11] LABS: ALBUMIN 3.7 g/dL (3.5-5.0); ANION GAP 14 (5-19); BLOOD UREA NITROGEN 16 mg/dL (7-20); CALCIUM 8.5 mg/dL (8.4-10.2); CARBON DIOXIDE 31 mmol/L (22-30); CHLORIDE 98 mmol/L (98-107); GLUCOSE 98 mg/dL (75-110); PHOSPHORUS 7.3 mg/dL (2.5-4.5); POTASSIUM 4.3 mmol/L (3.6-5.0); SODIUM 142.6 mmol/L (137-145)
[2018-02-21] MEDS: LEVOTHYROXINE SODIUM 0.15 MG TABLET PO SCH (07:00)
[2018-02-21] MEDS: LEVOTHYROXINE SODIUM 0.1 MG TABLET PO SCH (07:00)
[2018-02-21] MEDS: LANSOPRAZOLE 30 MG TAB.RAP.DR PO SCH (10:00)
[2018-02-21] MEDS: ATENOLOL 50 MG TABLET PO SCH (10:07)
[2018-02-21] MEDS: CALCITRIOL 0.25 MCG CAPSULE PO SCH (10:07)
[2018-02-21] MEDS: ASCORBIC ACID 500 MG TABLET PO SCH (10:08)
[2018-02-21] MEDS: CALCIUM CARBONATE 500 MG TAB.CHEW PO SCH (10:08)
[2018-02-21] MEDS: ESCITALOPRAM OXALATE 10 MG TABLET PO SCH (10:08)
[2018-02-21] MEDS: ENOXAPARIN SODIUM INJ 40 MG/0.4 ML DISP.SYRIN SUBCUT SCH (10:09)
[2018-02-21 12:09] VITALS: BP 125/65
--- NOTE | 2018-02-21 15:59 | PDOC DISCHARGE SUMMARY ---
General - Admit/Disc Date/PCP Admission Date/Primary Care Provider: 02/18/18 18:11 JACEY ARMENDARIZ PA-C Discharge Date: 02/21/18 - Discharge Diagnosis (1) Hypocalcemia Is this a current diagnosis for this admission?: Yes Summary: Calcium was replaced with a total of 8 g IV. Her outpatient dose of calcium carbonate was also increased. Today her levels are therapeutic, and we will have her follow-up as an outpatient. (2) Hypoparathyroidism after procedure Is this a current diagnosis for this admission?: Yes Summary: On aggressive calcipotriol and calcium replacement. (3) Hypothyroidism (acquired) Is this a current diagnosis for this admission?: Yes Summary: Following a thyroidectomy last week, on aggressive replacement therapy that was continued as an inpatient. Outpatient follow-up. (4) Morbid obesity with BMI of 50.0-59.9, adult Is this a current diagnosis for this admission?: Yes - Additional Information Resuscitation Status: Full Code Discharge Diet: As Tolerated Discharge Activity: Activity As Tolerated Home Medications: Atenolol [Tenormin] 25 mg PO DAILY 02/18/18 Escitalopram Oxalate [Lexapro] 20 mg PO DAILY 02/18/18 Hydrocodone Bit/Acetaminophen [Hydrocodon-Acetaminophen 5-325] 1 each PO Q6HP PRN 02/18/18 Levothyroxine Sodium [Synthroid] 250 mcg PO QAM 02/18/18 Omeprazole Magnesium [Prilosec Otc] 40 mg PO DAILY 02/18/18 Calcitriol [Rocaltrol 0.25 mcg Capsule] 0.5 mcg PO TID capsule 02/21/18 Calcium Carbonate [Tums Chewable 500 mg Tab.chew] 1,500 mg PO QID tab.chew History of Present Illness Patient complains of: Facial numbness, and legs tingling. History of Present Illness: MILAN ODOM is a 47 year old female who had a total thyroidectomy on February 15 for a goiter. This is her second presentation to the ER for tingling in her face and cramping in her legs. She states she continues to have diarrhea , though she has not had any in the 12 hour she has been here in the ER. She states she has been taking her calcium, calcitriol, and thyroxine as prescribed. She was found to be notably hypocalcemic. The ER has continued to treat her with IV calcium over the past 12 hours and it still has not normalized , but she states her symptoms have improved. Hospital Course Hospital Course: Calcium was rechecked the next morning and found to still be low. She was dosed again with 4 g of IV calcium gluconate, and her oral calcium carbonate was increased. 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 hopefully the end the week Physical Exam Vital Signs: Temp Pulse Resp BP Pulse Ox 98.9 F 73 20 125/65 97 02/21/18 12:08 02/21/18 12:08 02/21/18 12:08 02/21/18 12:08 02/21/18 12:08 Intake & Output 02/20/18 02/21/18 02/22/18 05:59 05:59 05:59 Intake Total 964 854 710 Balance 964 854 710 Weight 320 lb 1.779 oz 320 lb 5.306 oz 320 lb 5.306 oz General appearance: PRESENT: no acute distress, morbidly obese Respiratory exam: PRESENT: clear to auscultation sharyn Cardiovascular exam: PRESENT: RRR GI/Abdominal exam: PRESENT: soft Extremities exam: PRESENT: other - No edema Neurological exam: PRESENT: CN II-XII grossly intact, other - No tremor. ABSENT : motor sensory deficit Psychiatric exam: PRESENT: other - Emotionally labile Skin exam: PRESENT: warm Results Laboratory Results: 02/21/18 04:53 02/20/18 02/21/18 16:37 04:53 Sodium 142.6 Potassium 4.3 Chloride 98 Carbon Dioxide 31 H Anion Gap 14 BUN 16 Creatinine 0.81 Est GFR ( Amer) > 60 Est GFR (Non-Af Amer) > 60 Glucose 98 Calcium 8.5 Ionized Calcium Aaron 1.07 L Phosphorus 7.3 H Magnesium 1.8 Albumin 3.7 Qualifiers - * PATIENT BEING DISCHARGED WITH ANY OF THE FOLLOWING DIAGNOSIS: No
[2018-02-21] MEDS ORDERED: DEXTROSE 5%-WATER 500 ML with AMIODARONE HCL 900 MG IV PRN ×2 (16:27)
== END 2018-02-21 13:13 | disposition home or self-care (01) | DRG 641 ==
LOC: ER 04:53 → OBSVTOIN 18:11 → EH 18:11 → 4S 19:37
PROVIDERS: ADMIT Internal Medicine; ATTEND Internal Medicine
DX: E83.51 Hypocalcemia (principal); Z68.43 Body mass index [BMI] 50.0-59.9, adult; E20.9 Hypoparathyroidism, unspecified; E89.0 Postprocedural hypothyroidism; E66.01 Morbid (severe) obesity due to excess calories; I10 Essential (primary) hypertension; M13.812 Other specified arthritis, left shoulder; F43.10 Post-traumatic stress disorder, unspecified; J45.909 Unspecified asthma, uncomplicated; M13.822 Other specified arthritis, left elbow; Z79.899 Other long term (current) drug therapy; Z98.891 History of uterine scar from previous surgery; Z90.710 Acquired absence of both cervix and uterus; Z91.013 Allergy to seafood; Z88.2 Allergy status to sulfonamides; Z82.3 Family history of stroke
CPT/HCPCS: 36415; 80053; 80069; 82310; 82330; 82652; 83735; 83970; 84439; 84443; 84481; 84703; 85025; 87493; 93005; 93010; 96365; 96366; 99285; J0610; J7060; S0119

== ENCOUNTER → 2018-04-04 | Outpatient (CLI) | payer OTHER ==
[~2018-04-04] MED LIST changes: +ACETAMINOPHEN 325 MG TABLET PO PRN; +DEXTROSE 5%-1/2 NORMAL SALINE 1,000 ML IV PRN; +PROMETHAZINE HCL INJ 25 MG/1 ML VIAL INJ PRN; -PROPOFOL INJ 200 MG/20 ML VIAL IV ONE; +SIMETHICONE 80 MG TAB.CHEW PO PRN
--- NOTE | 2018-04-04 14:48 | RADIOLOGY REPORT (SQ) ---
EXAM DESCRIPTION: CHEST PA/LATERAL COMPLETED DATE/TIME: 04/04/2018 2:08 pm REASON FOR STUDY: PRODUCTIVE COUGH COMPARISON: 10/23/2017 EXAM PARAMETERS: NUMBER OF VIEWS: two views TECHNIQUE: Digital Frontal and Lateral radiographic views of the chest acquired. RADIATION DOSE: NA LIMITATIONS: none FINDINGS: LUNGS AND PLEURA: New linear atelectasis and/or early infiltrate in the left lingula. Th e right lung remains clear. No pneumothorax or pleural effusion. MEDIASTINUM AND HILAR STRUCTURES: No masses or contour abnormalities. HEART AND VASCULAR STRUCTURES: Heart normal size. No evidence for failure. BONES: No acute findings. HARDWARE: None in the chest. OTHER: No other significant finding. IMPRESSION: 1 Since the previous examination dated 10/23/2015, new linear atelectasis and/or early in filtrate in the left lingula. TECHNICAL DOCUMENTATION: JOB ID: [id number] [employer]- All Rights Reserved Reading location - IP/workstation name: [email or web address]
== END ==
LOC: OD 13:56
PROVIDERS: ATTEND Nurse Practitioner Family
DX: R05 Cough (principal)
CPT/HCPCS: 71046

== ENCOUNTER → 2018-12-28 | Outpatient (CLI) | payer OTHER ==
[2018-12-28 09:31] LABS: HEMATOCRIT 36.7 % (36.0-47.0); HEMOGLOBIN 12.4 g/dL (12.0-15.5); MEAN CORPUSCULAR HEMOGLOBIN 27.4 pg (27.0-33.4); MEAN CORPUSCULAR HGB CONC 33.8 g/dL (32.0-36.0); MEAN CORPUSCULAR VOLUME 81 fl (80-97); PLATELET COUNT 261 10^3/uL (150-450); RED BLOOD COUNT 4.51 10^6/uL (3.72-5.28); RED CELL DISTRIBUTION WIDTH 16.9 % (11.5-14.0); WHITE BLOOD COUNT 8.2 10^3/uL (4.0-10.5)
[2018-12-28 09:52] LABS: ALANINE AMINOTRANSFERASE 26 U/L (9-52); ALBUMIN 3.9 g/dL (3.5-5.0); ALKALINE PHOSPHATASE 87 U/L (38-126); ANION GAP 6 (5-19); ASPARTATE AMINO TRANSFERASE 21 U/L (14-36); BILIRUBIN,DIRECT 0.3 mg/dL (0.0-0.4); BILIRUBIN,TOTAL 0.5 mg/dL (0.2-1.3); BLOOD UREA NITROGEN 17 mg/dL (7-20); CALCIUM 9.7 mg/dL (8.4-10.2); CARBON DIOXIDE 30 mmol/L (22-30); CHLORIDE 104 mmol/L (98-107); CHOLESTEROL 152.64 mg/dL (0-200); GLUCOSE 96 mg/dL (75-110); POTASSIUM 4.4 mmol/L (3.6-5.0); SODIUM 139.7 mmol/L (137-145); TRIGLYCERIDES 94 mg/dL (<150)
[2018-12-28 10:03] LABS: DIRECT LDL 97 mg/dL (<100)
== END ==
LOC: OD 08:34
PROVIDERS: ATTEND Physician Assistant
DX: F41.9 Anxiety disorder, unspecified (principal); R63.5 Abnormal weight gain
CPT/HCPCS: 36415; 80053; 80061; 83036; 83525; 84443; 85027

== ENCOUNTER 2019-09-18 07:51 | Emergency (ER) | payer OTHER ==
[2019-09-18] MEDS ORDERED: IBUPROFEN 600 MG TABLET PO ONE (08:50)
--- NOTE | 2019-09-18 08:50 | ER Document Report ---
ED Fall - General Chief Complaint: Fall Stated Complaint: FALL/LEFT ELBOW AND LOW BACK PAIN Time Seen by Provider: 09/18/19 08:25 Primary Care Provider: JACEY ARMENDARIZ PA-C [Primary Care Provider] - Follow up as needed TRAVEL OUTSIDE OF THE [place] IN LAST 30 DAYS: No - HPI Notes: 49-year-old female to the emergency department with complaints of a fall that occurred just this morning prior to arrival. States that she was trying to get out of her home when she slipped down about 2-3 [address] stairs. She states that she fell down onto her rear end and also struck her left elbow. She states that her elbow hurts the worst but also her back hurts. She denies any loss of consciousness or hitting her head. She denies any bladder or bowel incontinence, saddle paresthesias, radiculopathy. She states that she is able to move the elbow and walk but she does have pain. She does have an abrasion to the left elbow. She is not taken anything for her symptoms prior to arrival. S he is not up-to-date on her tetanus. - Related data Allergies/Adverse Reactions: shrimp Allergy (Severe, Verified 09/18/19 07:55) Swelling of mouth with large amounts Sulfa (Sulfonamide Antibiotics) Allergy (Severe, Verified 09/18/19 07:55) Blisters in mouth Tuna Allergy (Severe, Uncoded 09/18/19 07:55) N&V Past Medical History - General Information source: Patient - Social History Smoking Status: Never Smoker Frequency of alcohol use: None Drug Abuse: None Family History: Reviewed & Not Pertinent, CVA Patient has suicidal ideation: No Patient has homicidal ideation: No - Past Medical History Cardiac Medical History: Reports: Hx Hypertension Denies: Hx Coronary Artery Disease, Hx Heart Attack Pulmonary Medical History: Reports: Hx Asthma - No attacks in yrs, Hx Pneumonia - 10/2015 Denies: Hx Bronchitis, Hx COPD Neurological Medical History: Denies: Hx Cerebrovascular Accident, Hx Seizures Endocrine Medical History: Reports: Hx Hypothyroidism Renal/ Medical History: Denies: Hx Peritoneal Dialysis Musculoskeletal Medical History: Reports Hx Arthritis - Lt shoulder, Lt elbow Psychiatric Medical History: Reports: Hx Anxiety, Hx Post Traumatic Stress Disorder Past Surgical History: Reports: Hx Abdominal Surgery - exp lap., Hx Section, Hx Hysterectomy, Hx Orthopedic Surgery - knee, foot, Hx Thyroid Surgery - Immunizations Hx Diphtheria, Pertussis, Tetanus Vaccination: Yes - 2012 Review of Systems - Review of Systems Constitutional: denies: Chills, Fever EENT: No symptoms reported Cardiovascular: denies: Chest pain, Palpitations, Heart racing, Syncope, Dizziness, Lightheaded Respiratory: denies: Cough, Short of breath Gastrointestinal: denies: Abdominal pain, Diarrhea, Nausea, Vomiting Genitourinary: No symptoms reported. denies: Incontinence Musculoskeletal: See HPI, Back pain, Joint pain Skin: Other - Abrasion to the left elbow Hematologic/Lymphatic: No symptoms reported Neurological/Psychological: No symptoms reported -: Yes All other systems reviewed and negative Physical Exam - Vital signs Vitals: Temp Pulse Resp BP Pulse Ox 97.6 F 76 20 168/66 H 98 09/18/19 07:55 09/18/19 07:55 09/18/19 07:55 09/18/19 07:55 09/18/19 07:55 Interpretation: Normal - General General appearance: Appears well, Alert In distress: None - HEENT Head: Normocephalic, Atraumatic. No: Tse's sign, Ecchymosis, Racoon's eyes Eyes: Normal Pupils: PERRL Neck: Normal, Supple - Respiratory Respiratory status: No respiratory distress Chest status: Nontender Breath sounds: Normal. No: Rales, Rhonchi, Wheezing Chest palpation: Normal - Cardiovascular Rhythm: Regular Heart sounds: Normal auscultation Murmur: No - Abdominal Inspection: Morbidly Obese Distension: No distension Bowel sounds: Normal Tenderness: Nontender Organomegaly: No organomegaly - Back Back: Tender - There is tenderness to palpation over the midline lumbar spine with no step-off or deformity. There is negative straight leg raise bilaterally. Nontender to palpation over the midline cervical, thoracic spine. - Extremities Notes: There is tenderness to palpation over the left elbow joint with noted abrasion. Bleeding is controlled. Nontender to palpation over the left shoulder and left wrist. 5 out of 5 handgrip bilaterally. Negative snuffbox tenderness bilaterally. Radial pulses intact and equal. Cap refill is less than 2 seconds. Patient is able to move the left elbow against resistance with 5 out of 5 strength in flexion and extension. She does have increased pain with movement. - Neurological Neuro grossly intact: Yes Cognition: Normal Orientation: AAOx4 Juanis Coma Scale Eye Opening: Spontaneous Juanis Coma Scale Verbal: Oriented Blossom Coma Scale Motor: Obeys Commands Blossom Coma Scale Total: 15 Speech: Normal Cranial nerves: Normal Cerebellar coordination: Normal Motor strength normal: LUE, RUE, LLE, RLE Additional motor exam normals: Equal clinical research spec. No: Pronator drift Sensory: Normal - Psychological Associated symptoms: Normal affect, Normal mood - Skin Skin Temperature: Warm Skin Moisture: Dry Skin Color: Normal Skin irregularity: other - There is a small abrasion to the left elbow with bleeding controlled. Course - Re-evaluation Re-evalutation: 09/18/19 09:55 Impression; Fall, low back strain, elbow abrasion and contusion. Encouraged icing the elbow three times a day for 20 minutes, heat to the back. Will send home with Nsaids and Muscle relaxants. Patient agrees with the plan. - Vital Signs Vital signs: Temp Pulse Resp BP Pulse Ox 97.6 F 76 20 168/66 H 98 09/18/19 07:55 09/18/19 07:55 09/18/19 07:55 09/18/19 07:55 09/18/19 07:55 - Diagnostic Test Radiology reviewed: Image reviewed, Reports reviewed Discharge - Discharge Clinical Impression: Elbow abrasion Qualifiers: Encounter type: initial encounter Laterality: left Qualified Code(s): S50.312A - Abrasion of left elbow, initial encounter Elbow contusion Qualifiers: Encounter type: initial encounter Laterality: left Qualified Code(s): S50.02XA - Contusion of left elbow, initial encounter Fall Qualifiers: Encounter type: initial encounter Qualified Code(s): W19.XXXA - Unspecified fall, initial encounter Low back strain Qualifiers: Encounter type: initial encounter Qualified Code(s): S39.012A - Strain of muscle, fascia and tendon of lower back, initial encounter Condition: Stable Disposition: HOME, SELF-CARE Instructions: Low Back Pain ([facility]), Abrasions ([facility]), Contusion ([facility]) Additional Instructions: TAKE MEDICINES PRESCRIBED. RETURN IF ANY WORSENING SYMPTOMS SUCH URINARY OR BOWEL INCONTINENCE, NUMBNESS/TINGLING AROUND THE RECTUM OR VAGINAL, WEAKNESS IN THE LEGS, INABILITY TO WALK. APPLY ICE TO THE ELBOW THREE TIMES A DAY FOR 20 MINUTES AND APPLY HEAT FOR THE BACK FOR 20 MINUTES. Prescriptions: Etodolac 200 mg PO BID #20 capsule Methocarbamol [Robaxin 500 mg Tablet] 500 mg PO QID #20 tablet Referrals: JACEY ARMENDARIZ PA-C [Primary Care Provider] - Follow up in 1 week
--- NOTE | 2019-09-18 09:29 | RADIOLOGY REPORT (SQ) ---
EXAM DESCRIPTION: ELBOW LEFT AP/LATERAL COMPLETED DATE/TIME: 09/18/2019 9:19 am REASON FOR STUDY: elbow pain, fall COMPARISON: None. NUMBER OF VIEWS: Four views. TECHNIQUE: AP, lateral, and both oblique radiographic images acquired of the left elbow. LIMITATIONS: None. FINDINGS: MINERALIZATION: Normal. BONES: No acute fracture or dislocation. No worrisome bone lesions. JOINT: No effusion. SOFT TISSUES: No soft tissue swelling. No foreign body. OTHER: No other significant finding. IMPRESSION: NEGATIVE STUDY OF THE LEFT ELBOW. NO RADIOGRAPHIC EVIDENCE OF ACUTE INJURY. TECHNICAL DOCUMENTATION: JOB ID: [id number] [employer]- All Rights Reserved Reading location - IP/workstation name: [email or web address]
--- NOTE | 2019-09-18 09:30 | RADIOLOGY REPORT (SQ) ---
EXAM DESCRIPTION: L SPINE WHOLE COMPLETED DATE/TIME: 09/18/2019 9:19 am REASON FOR STUDY: low back pain, fall COMPARISON: None. NUMBER OF VIEWS: Five views including obliques. TECHNIQUE: AP, lateral, oblique, and sacral radiographic images acquired of the lumbar spine. LIMITATIONS: None. FINDINGS: MINERALIZATION: Normal. SEGMENTATION: Normal. No transitional anatomy. ALIGNMENT: Normal. VERTEBRAE: Maintained height. No fracture or worrisome bone lesion. DISCS: Preserved height. No significant osteophytes or end plate irregularity. POSTERIOR ELEMENTS: Pedicles and facets are intact. No pars defect or posterior arch defects. Mild bilateral facet arthropathy at L4-5 and L5-S1. HARDWARE: None in the spine. PARASPINAL SOFT TISSUES: Normal. PELVIS: SI joints intact OTHER: No other significant finding. IMPRESSION: No acute findings TECHNICAL DOCUMENTATION: JOB ID: [id number]- All Rights Reserved Reading location - IP/workstation name: [email or web address]
[2019-09-18] MEDS ORDERED: DIPH/PERTUSS(ACELL)/TETANUS VAC/PF 0.5 ML SYR (>=10YO) IM ONE (09:54)
[2019-09-18 10:31] VITALS: BP 144/99
== END 2019-09-18 10:32 | disposition home or self-care (01) ==
LOC: ER 07:51
DX: S50.312A Abrasion of left elbow, initial encounter (principal); S50.02XA Contusion of left elbow, initial encounter; S39.012A Strain of muscle, fascia and tendon of lower back, initial encounter; M25.522 Pain in left elbow; W10.9XXA Fall (on) (from) unspecified stairs and steps, initial encounter; I10 Essential (primary) hypertension; J45.909 Unspecified asthma, uncomplicated
CPT/HCPCS: 72110; 90471; 90715; 99283

== ENCOUNTER → 2019-11-09 | Outpatient (CLI) | payer OTHER ==
--- NOTE | 2019-11-09 11:00 | RADIOLOGY REPORT (SQ) ---
EXAM DESCRIPTION: CHEST PA/LATERAL COMPLETED DATE/TIME: 11/09/2019 10:44 am REASON FOR STUDY: MILD INTERMITTENT ASTHMA, UNCOMPLICATED COMPARISON: 10/23/2015. EXAM PARAMETERS: NUMBER OF VIEWS: two views TECHNIQUE: Digital Frontal and Lateral radiographic views of the chest acquired. RADIATION DOSE: NA LIMITATIONS: none FINDINGS: LUNGS AND PLEURA: No opacities, masses or pneumothorax. No pleural effusion. MEDIASTINUM AND HILAR STRUCTURES: No masses or contour abnormalities. HEART AND VASCULAR STRUCTURES: Heart normal size. No evidence for failure. BONES: No acute findings. HARDWARE: None in the chest. OTHER: No other significant finding. IMPRESSION: NO SIGNIFICANT RADIOGRAPHIC FINDING IN THE CHEST. TECHNICAL DOCUMENTATION: JOB ID: [id number] 2010 [employer]- All Rights Reserved Reading location - IP/workstation name: [email or web address]
== END ==
LOC: OD 10:32
PROVIDERS: ATTEND Physician Assistant
DX: J45.20 Mild intermittent asthma, uncomplicated (principal)
CPT/HCPCS: 71046

== ENCOUNTER 2019-12-29 12:30 | Emergency (ER) | payer OTHER ==
[2019-12-29 12:42] VITALS: BP 151/123
[2019-12-29] MEDS ORDERED: LIDOCAINE 1%/EPINEPHRINE INJ 20 ML VIAL INJ ONE (12:42)
--- NOTE | 2019-12-29 12:42 | ER Document Report ---
ED Medical Screen (RME) - General Chief Complaint: Laceration Stated Complaint: LACERATION Time Seen by Provider: 12/29/19 12:34 Primary Care Provider: JACEY ARMENDARIZ PA-C [Primary Care Provider] - Follow up as needed Mode of Arrival: Ambulatory Information source: Patient Notes: 49-year-old female presents to the emergency department with a scratch to the front of her right andersen approximately 10 cm long with an open area of approximately 3 cm. She reports her tetanus is up-to-date no active bleeding. I have greeted and performed a rapid initial assessment of this patient. A comprehensive ED assessment and evaluation of the patient, analysis of test results and completion of the medical decision making process will be conducted by additional ED providers. TRAVEL OUTSIDE OF THE [place] IN LAST 30 DAYS: No - Related Data Allergies/Adverse Reactions: shrimp Allergy (Severe, Verified 12/29/19 12:39) Swelling of mouth with large amounts Sulfa (Sulfonamide Antibiotics) Allergy (Severe, Verified 12/29/19 12:39) Blisters in mouth Tuna Allergy (Severe, Uncoded 12/29/19 12:39) N&V Past Medical History - Social History Chew tobacco use (# tins/day): No Frequency of alcohol use: None Drug Abuse: None - Past Medical History Cardiac Medical History: Reports: Hx Hypertension Denies: Hx Coronary Artery Disease, Hx Heart Attack Pulmonary Medical History: Reports: Hx Asthma - No attacks in yrs, Hx Pneumonia - 10/2015 Denies: Hx Bronchitis, Hx COPD Neurological Medical History: Denies: Hx Cerebrovascular Accident, Hx Seizures Endocrine Medical History: Reports: Hx Hypothyroidism Renal/ Medical History: Denies: Hx Peritoneal Dialysis Musculoskeltal Medical History: Reports Hx Arthritis - Lt shoulder, Lt elbow Psychiatric Medical History: Reports: Hx Anxiety, Hx Post Traumatic Stress Disorder Past Surgical History: Reports: Hx Abdominal Surgery - exp lap., Hx Section, Hx Cholecystectomy, Hx Hysterectomy, Hx Orthopedic Surgery - knee, foot, Hx Thyroid Surgery - Immunizations Hx Diphtheria, Pertussis, Tetanus Vaccination: Yes - 2012 Physical Exam - Vital signs Vitals: Temp Pulse Resp BP Pulse Ox 98.2 F 80 18 151/123 H 100 12/29/19 12:35 12/29/19 12:35 12/29/19 12:35 12/29/19 12:35 12/29/19 12:35 Course - Vital Signs Vital signs: Temp Pulse Resp BP Pulse Ox 98.2 F 80 18 151/123 H 100 12/29/19 12:35 12/29/19 12:35 12/29/19 12:35 12/29/19 12:35 12/29/19 12:35 Doctor's Discharge - Discharge Referrals: JACEY ARMENDARIZ PA-C [Primary Care Provider] - Follow up as needed
[2019-12-29] MEDS ORDERED: LIDOCAINE 1% INJ-PF (10 MG/ML) 30 ML SDV INJ ONE ×2 (12:56)
--- NOTE | 2019-12-29 13:24 | ER Document Report ---
Entered by JOSE CARDENAS SCRIBE 12/29/19 [id number] Acting as scribe for:LEON OLIVEIRA MD ED Wound - General Chief Complaint: Laceration Stated Complaint: LACERATION Time Seen by Provider: 12/29/19 12:34 Primary Care Provider: JACEY ARMENDARIZ PA-C [Primary Care Provider] - Follow up as needed Mode of Arrival: Ambulatory Information source: Patient Notes: This 49-year-old female patient presents to the emergency department today with complaints of a laceration to her right andersen. Patient was carrying a bag full of stuff up some steps when she lost her balance, falling forward and striking her andersen on the step, bleeding is controlled. There are no other injuries. Patient's tetanus status is up-to-date, stating she had one in 2018. TRAVEL OUTSIDE OF THE [place] IN LAST 30 DAYS: No - Related Data Allergies/Adverse Reactions: shrimp Allergy (Severe, Verified 12/29/19 12:39) Swelling of mouth with large amounts Sulfa (Sulfonamide Antibiotics) Allergy (Severe, Verified 12/29/19 12:39) Blisters in mouth Tuna Allergy (Severe, Uncoded 12/29/19 12:39) N&V Past Medical History - General Information source: Patient - Social History Smoking Status: Never Smoker Cigarette use (# per day): No Chew tobacco use (# tins/day): No Frequency of alcohol use: None Drug Abuse: None Lives with: Family Family History: Reviewed & Not Pertinent, CVA Patient has suicidal ideation: No Patient has homicidal ideation: No - Past Medical History Cardiac Medical History: Reports: Hx Hypertension Pulmonary Medical History: Reports: Hx Asthma - No attacks in yrs, Hx Pneumonia - 10/2015 Endocrine Medical History: Reports: Hx Hypothyroidism Musculoskeletal Medical History: Reports Hx Arthritis - Lt shoulder, Lt elbow Psychiatric Medical History: Reports: Hx Anxiety, Hx Post Traumatic Stress Disorder Past Surgical History: Reports: Hx Abdominal Surgery - exp lap., Hx Section, Hx Cholecystectomy, Hx Hysterectomy, Hx Orthopedic Surgery - knee, ankle x2, Hx Thyroid Surgery - Thyroidectomy - Immunizations Hx Diphtheria, Pertussis, Tetanus Vaccination: Yes - 2012 Review of Systems - Review of Systems Constitutional: No symptoms reported EENT: No symptoms reported Cardiovascular: No symptoms reported Respiratory: No symptoms reported Gastrointestinal: No symptoms reported Genitourinary: No symptoms reported Female Genitourinary: No symptoms reported Musculoskeletal: No symptoms reported Skin: See HPI, Lesions Hematologic/Lymphatic: No symptoms reported Neurological/Psychological: No symptoms reported -: Yes All other systems reviewed and negative Physical Exam - Vital signs Vitals: Temp Pulse Resp BP Pulse Ox 98.2 F 80 18 151/123 H 100 12/29/19 12:35 12/29/19 12:35 12/29/19 12:35 12/29/19 12:35 12/29/19 12:35 - Notes Notes: Physical Exam: General: Alert, appears well. HEENT: Normocephalic. Atraumatic. PERRLA. Extraocular movements intact. Oropharynx clear. Neck: Supple. Respiratory: No respiratory distress. Abdominal: Morbidly obese. No distension. Extremities: Moves all four extremities. Neurological: Normal cognition. AAOx4. Normal speech. Psychological: Normal affect. Normal Mood. Skin: 3.5 cm laceration to the right anterior andersen, no active bleeding. Course - Vital Signs Vital signs: Temp Pulse Resp BP Pulse Ox 98.2 F 80 18 151/123 H 100 12/29/19 12:35 12/29/19 12:35 12/29/19 12:35 12/29/19 12:35 12/29/19 12:35 Discharge - Discharge Clinical Impression: Laceration of lower leg Qualifiers: Encounter type: initial encounter Laterality: left Qualified Code(s): S81.812A - Laceration without foreign body, left lower leg, initial encounter Condition: Stable Disposition: HOME, SELF-CARE Additional Instructions: Laceration Care Your laceration has been sutured to keep the skin edges aligned during healing. The time of suture removal depends on the nature and location of your cut. Please follow the care instructions the doctor has outlined for you and return for further care, according to the schedule you've been given. Keep the wound and dressing clean. Unless you were told otherwise, you may shower daily, blotting the wound dry with a clean, unused towel. At other times, If the dressing gets wet or blood soaked, remove it and blot the wound dry, then reapply a new dressing. Unless you were instructed otherwise, dressings should be changed at least daily. If any signs of infection occur (swelling, redness, increasing tenderness, red streaks, tender lumps in the armpit or groin above the laceration, or fever), see the doctor immediately. Elevate your leg as much possible. Keep the wound dressing clean and dry. Return to the emergency room or to your primary care provider in 10 days for suture removal. RETURN TO THE EMERGENCY ROOM IF ANY NEW OR WORSENING SYMPTOMS. Referrals: JACEY ARMENDARIZ PA-C [Primary Care Provider] - Follow up as needed I personally performed the services described in the documentation, reviewed and edited the documentation which was dictated to the scribe in my presence, and it accurately records my words and actions.
== END 2019-12-29 13:51 | disposition home or self-care (01) ==
LOC: ER 12:30
DX: S81.811A Laceration without foreign body, right lower leg, initial encounter (principal); W10.9XXA Fall (on) (from) unspecified stairs and steps, initial encounter; I10 Essential (primary) hypertension; Z88.2 Allergy status to sulfonamides; Z91.013 Allergy to seafood; Z90.49 Acquired absence of other specified parts of digestive tract; Z90.710 Acquired absence of both cervix and uterus
CPT/HCPCS: 99282; 12002; J3490

== ENCOUNTER → 2020-10-22 | Outpatient (CLI) | payer OTHER ==
--- NOTE | 2020-10-22 11:51 | WOMENS IMAGING REPORT ---
EXAM DESCRIPTION: BILAT SCREENING MAMMO W/CAD IMAGES COMPLETED DATE/TIME: 10/22/2020 11:18 am REASON FOR STUDY: ROUTINE SCREENING MAMMOGRAM Z12.31 Z12.31 ENCNTR SCREEN MAMMOGRAM FOR MALIGNANT N EOPLASM OF JACI COMPARISON: 08/04/2017 and 08/07/2015. EXAM PARAMETERS: Standard craniocaudal and mediolateral oblique views of each breast recorded using digital acquisition. Read with the assistance of CAD. .[facility] - [employer] Version 9.2 LIMITATIONS: None. FINDINGS: No suspicious masses, suspicious calcifications or architectural distortion. No areas of c oncern. IMPRESSION: NEGATIVE MAMMOGRAM. BIRADS 1 BREAST DENSITY: a. The breasts are almost entirely fatty. BIRAD: ASSESSMENT: 1 NEGATIVE RECOMMENDATION: ROUTINE SCREENING COMMENT: The patient has been notified of the results by letter per MQSA requirements. Additional no tification policies are in place for contacting patient with suspicious or incomplete findings. Quality ID #[id number]: The [employer] recommends an annual screening mammogram for women aged 40 years or over. This facility utilizes a reminder system to ensure that all patients receive reminder letters, and/or direct phone calls for appointments. This includes reminders for routine scr eening mammograms, diagnostic mammograms, or other Breast Imaging Interventions when appropriate. Th is patient will be placed in the appropriate reminder system. TECHNICAL DOCUMENTATION: FINDING NUMBER: (1) ASSESSMENT: (1) JOB ID: [id number] 2010 [employer]- All Rights Reserved Reading location - IP/workstation name: [email or web address]
== END ==
LOC: WI 10:48
PROVIDERS: ATTEND Physician Assistant
DX: Z12.31 Encounter for screening mammogram for malignant neoplasm of breast (principal)
CPT/HCPCS: 77067